=== PATIENT | female | born 1965 | race African-American/Black ===

== ENCOUNTER 2017-09-23 05:54 | Day surgery (SDC) | payer OTHER ==
--- NOTE | 2017-09-19 15:28 | HP ---
AMENDED REPORT NOW INCLUDES COSIGNER DESIGNATION - ESIGNED BEFORE ADJUSTMENT HISTORY AND PHYSICAL: DATE OF ADMISSION/SURGERY: 09/23/17 SURGEON: Demetria Roberts MD. * (DICTATED BY CRYSTAL SAVAGE) PROCEDURE: Right knee arthroscopy with partial medial meniscectomy, possible chondroplasty, and possible synovectomy. CHIEF COMPLAINT: Right knee pain. 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 An MRI confirms a medial meniscus tear. She has elected to proceed with right knee arthroscopy with partial medial meniscectomy. PAST MEDICAL HISTORY: Denies. PAST SURGICAL HISTORY: [place] teeth extraction. CURRENT MEDICATIONS: 1. Multivitamin. 2. Ibuprofen. ALLERGIES: None. FAMILY HISTORY: Breast cancer and coronary artery disease. SOCIAL HISTORY: She is a 52-year-old female, she lives with her and children. She is a physician at [employer]. She does not smoke or use drugs. Uses occasional alcohol. REVIEW OF SYSTEMS: A complete 14-point review of systems was reviewed with the patient and it was all negative. PHYSICAL EXAMINATION GENERAL: She is well developed and well nourished in no acute distress. VITAL SIGNS: She stands 5 feet 3 inches tall, weighs 193 pounds. Her blood pressure is 130/82, her heart rate is 80. HEENT: Normocephalic and atraumatic. NECK: Supple. No palpable lymph nodes. PULMONARY: The lungs are clear to auscultation bilaterally. CARDIAC: Regular rate and rhythm. Strong S1 and S2. ABDOMEN: Soft, nontender, and nondistended. NEUROLOGIC: She is alert and oriented x3. Cranial nerves II through XII are intact. MUSCULOSKELETAL: Right lower extremity, the skin is intact. There are no open wounds or abrasions. She has some tenderness over the medial joint line. Positive Edgar's. Negative Amirah's. There is a mild effusion. 0 to 125 range of motion. 2+ dorsalis pedis pulses. She has intact sensation and her lower extremities muscle group strengths are intact at 5/5. 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 An MRI confirms a medial meniscus tear. She has elected to proceed with right knee arthroscopy with partial medial meniscectomy, possible chondroplasty, and possible synovectomy. Surgery is scheduled for 09/23/[address] Roberts discussed the risks and benefits of the surgery at today's visit. All of her questions were answered. She will follow up with Dr. Roberts 2 weeks after the surgery. CRYSTAL SAVAGE [id number]/[facility] #: [id number] [facility]ENTERCarmen
[~2017-09-23 05:54] MED LIST: Buffered Lidocaine 0.9% SYRIN* 5 ML/SYR SYRINGE INTRADERM ONE; DiMENhydriNATE IV* 50 MG/ML VIAL IV PUSH PRN; Morphine INJ* 2 MG/ML 1 ML CARPUJECT IV PRN; Naloxone* 0.4 MG/ML 1 ML VIAL IV PRN; PROCHLORPERAZINE INJ 5 MG/ML 2 ML VIAL IV PRN; Scopolamine 1.5 mg* PATCH TRANSDERM PRN; fentaNYL* 50 MCG/ML 2 ML VIAL (100 MCG VIAL) IV PRN; oxyCODONE/Acetamin 5/325 MG* TAB PO PRN
[2017-09-23] MEDS ORDERED: Famotidine IV* 10 MG/ML 2 ML (20 mg) IV ONE (06:00)
[2017-09-23] MEDS ORDERED: Famotidine IV* 10 MG/ML 2 ML (20 mg) ONE (06:25)
[2017-09-23] MEDS ORDERED: ceFAZolin 2 GM PREMIX (*) 2 GM/50 ML BAG IVPB ONE (06:26)
[2017-09-23] MEDS ORDERED: methylPREDNISolone ACETATE 80* 80 MG/ML 1 ML VIAL ONE (06:51)
[2017-09-23] MEDS ORDERED: EPINEPHRINE 1 MG/ML 1 ML VIAL ONE (06:51)
[2017-09-23] MEDS ORDERED: Bupivacaine 0.5%* 50 ML VIAL ONE (06:51)
[2017-09-23] MEDS ORDERED: fentaNYL* 50 MCG/ML 2 ML VIAL (100 MCG VIAL) ONE ×2 (07:10→09:37)
[2017-09-23] MEDS ORDERED: Midazolam* 1 MG/ML 5 ML VIAL (5 MG) ONE (07:10)
[2017-09-23] MEDS ORDERED: Chloroprocaine 3%* 20 ML VIAL ONE (07:12)
[2017-09-23] MEDS ORDERED: Propofol* 10 MG/ML 20 ML BTL IV PUSH ONE (07:47)
[2017-09-23] MEDS ORDERED: Dexamethasone IV* 4 MG/ML 1 ML (4 MG) ONE (07:47)
[2017-09-23] MEDS ORDERED: Ondansetron INJ* 2 MG/ML VIAL ONE (07:47)
[2017-09-23] MEDS ORDERED: Lidocaine 2% PF * 5 ML VIAL ONE (07:47)
[2017-09-23] MEDS ORDERED: Ketorolac INJ* 30 MG/ML 1 ML VIAL ONE (07:47)
[2017-09-23] MEDS ORDERED: oxyCODONE/Acetamin 5/325 MG* TAB ONE (09:37)
[2017-09-23 10:17] VITALS: BP 135/90
--- NOTE | 2017-09-24 13:50 | OP ---
DATE OF OPERATION: 09/23/17 - [facility] DATE OF : 65 SURGEON: Demetria Roberts MD TELESERVICES REPRESENTATIVE: CRYSTAL Knapp. Mr. Gilmore did help throughout the procedure with preparation of the leg, wound retraction, manipulation of the knee, and wound closure. ANESTHESIOLOGIST: Blayne Rodriguez MD ANESTHESIA: Spinal. PRE-OP DIAGNOSIS: Right knee medial meniscal tear. POST-OP DIAGNOSIS: Right knee linear medial meniscal tear, radial lateral meniscal tear, [id number] degenerative osteoarthritis in the medial and patellofemoral compartment. OPERATIVE PROCEDURE: Right total knee arthroscopy with partial medial meniscectomy and partial lateral meniscectomy. 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 She had mechanical symptoms which prompted an MRI. MRI did clearly show a medial meniscal tear. Plain films and MRI showed some mild degenerative changes. The patient failed conservative treatment with activity modification, physical therapy, and antiinflammatories. Due to continued pain and mechanical symptoms, she elected to undergo right knee arthroscopy with partial meniscectomy, possible chondroplasty, possible synovectomy. The patient understood the risks of the surgery included, but were not limited to, bleeding, infection, damage to nearby structures, continued pain , need for further surgery, stroke, heart attack, blood clot, and . She wished to proceed. ESTIMATED BLOOD LOSS: Less than 25 cc. COMPLICATIONS: None. SPECIMENS: None. INTRAOPERATIVE FINDINGS: Intraoperatively, the patient was noted to have a linear tear involving the posterior 50% of the medial meniscus in the red-white zone. She also had a radial-type tear in the lateral meniscus in the white-red zone. The patient was noted to have grade 3 and 4 Outerbridge cartilage changes in all 3 compartments. Patellofemoral compartment had significant degenerative osteoarthritis with fraying of the cartilage along the medial patellar facet and loss of cartilage along the trochlear groove of the femur. The medial compartment showed extensive degeneration of the cartilage along the medial femoral condyle with exposed subchondral bone. The lateral compartment showed significant degenerative osteoarthritis of the tibial plateau with exposed subchondral bone. DESCRIPTION OF PROCEDURE: Dr. Andres was identified in the preanesthesia unit. Her right lower extremity was marked as the correct operative side. Informed consent was signed and placed in the chart. The patient was taken to the operating room and placed under spinal anesthesia. The right lower extremity was prepped and draped in the usual sterile fashion. Preop time-out was made to correctly identify the patient's side and site. Appropriate perioperative antibiotics were given within 1 hour of incision. A 0.5-cm standard anterolateral portal incision was made with a 15-blade and carried down through the capsule. Trocar was introduced. As soon as the light and water sources were turned on, there was immediate visualization of the suprapatellar pouch. A tour of the knee joints was performed. Suprapatellar pouch showed no obvious abnormality. Patellofemoral component showed exposed subchondral bone along the majority of the femoral trochlear groove as well as significant cartilage fraying along the medial patellar facet. Medial gutter showed no loose body or plica. Medial compartment immediately showed a posterior linear-type tear of the medial meniscus. The medial femoral condyle had grade 3 and 4 Outerbridge cartilage changes with significant amounts of exposed subchondral bone. The ACL and PCL appeared to be intact. The knee was placed in figure-of-4 position. Lateral tibial plateau had cartilage fraying with exposed subchondral bone with grade 3 and 4 Outerbridge cartilage changes. There was a radial-type tear in the mid portion of the lateral meniscus with anterior displacement. Lateral gutter showed no obvious loose body or plica. Under direct visualization, a medial portal incision was made with a 15-blade. A probe was introduced and the tour of the joint was performed. No additional findings were noted. At this point, a shaver and straight biter was used perform partial medial meniscectomy. This was indeed a linear tear in the medial meniscus in the white-red zone involving the posterior 50% of the meniscus. A smooth border of the meniscus was obtained and the probe showed no further tearing. Radio-frequency ablation wand was used to further smooth the edge of the meniscus. Next, the knee was placed in the figure-of-4 position. Straight biter and shaver were used to perform partial lateral meniscectomy in the white-red zone until a smooth border was obtained. Radiofrequency ablation wand was then used to further smooth this edge. The knee was copiously irrigated with sterile saline. All instruments were removed. Incisions were closed using interrupted 3-0 nylon. Intraarticular injection of 80 mg Depo-Medrol and 6cc of 0.25% Marcaine was placed in the knee joint. The patient's incisions were covered with Xeroform, 4x4s, and Webril. Den wrap and cold pack were placed over this. The anesthesia was reversed without difficulty. She was taken to the PACU in stable condition. Intended weightbearing will be weightbearing as tolerated. Intended DVT prophylaxis will be aspirin. [id number]/[facility] #: [id number] MTDD
[2017-09-26] MEDS ORDERED: Scopolamine PATCH Remove* 1 NOTE MISC PATCH OFF ONE (05:38)
== END 2017-09-23 10:40 | disposition home or self-care (01) ==
LOC: OR 05:54
PROVIDERS: ATTEND Orthopaedic Surgery Adult Reconstructive Orthopaedic Surgery
DX: M23.203 Derangement of unspecified medial meniscus due to old tear or injury, right knee (principal); M23.200 Derangement of unspecified lateral meniscus due to old tear or injury, right knee; M17.11 Unilateral primary osteoarthritis, right knee
CPT/HCPCS: A9270-GY; J0690; J1040; J1100; J1885; J2250; J2400; J2405; J2704; J3010